=== PATIENT | male | born 1955 | race Caucasian/White ===

== ENCOUNTER 2020-10-06 18:31 | Inpatient (IN) | payer OTHER ==
[~2020-10-06] VITALS: Ht 170.2 cm; Wt 59.0 kg
[~2020-10-06 18:31] MED LIST changes: -ACET325 PO; -ALBU90OI INH; -AMLO5 PO; -ATOR20 PO; -Aspir 8181 MG; -BISA10S PR; -CHLO25A PO; -CLOP75; -DOCU100 PT; -IPRAT-ALBUT 0.5-3 ML INH; -Lopressor 25 mg25 MG PT; -MIRALAX17 GM PT; -Nicoderm Cq1 EAC1 TOP; -OMEP20ER PT; -SENNA LAXATIVE8.6 MG PT
[2020-10-07 05:13] LABS: BASOPHILS ABSOLUTE AUTO 0.05 K/mm3 (0.00-0.23); BASOPHILS PERCENT AUTO 1 % (0-2); EOSINOPHILS PERCENT AUTO 1 % (0-6); Hematocrit 41.9 % (37.0-53.0); Hemoglobin 14.6 g/dL (13.5-17.5); IMMATURE GRAN ABSOLUTE AUTO 0.03 K/mm3 (0.00-0.10); IMMATURE GRAN PERCENT AUTO 0 % (0-1); LYMPHOCYTES ABSOLUTE AUTO 1.13 K/mm3 (0.84-5.20); LYMPHOCYTES PERCENT AUTO 13 % (21-46); MONOCYTES ABSOLUTE AUTO 0.93 K/mm3 (0.16-1.47); MONOCYTES PERCENT AUTO 11 % (4-13); Mean Corpuscular HGB 32.3 pg (26.0-34.0); Mean Corpuscular HGB Conc 34.8 g/dL (31.5-36.5); Mean Corpuscular Volume 93 fL (80-100); Mean Platelet Volume 9.6 fL (9.1-12.4); NEUTROPHILS ABSOLUTE AUTO 6.44 K/mm3 (1.96-9.15); NEUTROPHILS PERCENT AUTO 74 % (41-73); Platelet Count 489 K/mm3 (150-400); RDW Standard Deviation 41.3 fL (35.1-46.3); Red Blood Cell Count 4.52 M/mm3 (4.30-5.90); White Blood Cell Count 8.68 K/mm3 (4.00-11.30)
[2020-10-07 05:33] LABS: Alanine Aminotransfer (ALT/SGP 17 U/L (12-78); Albumin, Blood 2.9 g/dL (3.4-5.0); Albumin/Globulin Ratio 0.6 (0.8-1.8); Alk Phos 91 U/L (50-136); Anion Gap 6 mmol/L (6-16); Aspartate Aminotrans (AST/SGOT 23 U/L (12-37); Bilirubin, Total 0.5 mg/dL (0.1-1.0); Blood Urea Nitrogen 11 mg/dL (8-24); Bun/Creatinine Ratio 20.6 (12.0-20.0); CO2, Blood 27 mmol/L (21-32); Calcium, Blood 8.3 mg/dL (8.5-10.1); Chloride, Blood 100 mmol/L (98-108); Creatinine, Blood 0.54 mg/dL (0.60-1.20); Globulin, Blood 4.6 g/dL (2.2-4.0); Glomerular Filtration Rate >60 (60-); Glucose, Blood 101 mg/dL (70-99); Sodium, Blood 133 mmol/L (136-145); Total Protein, Blood 7.5 g/dL (6.4-8.2)
[2020-10-07 18:38] LABS: Influenza A, PCR Negative (NEGATIVE); Influenza B, PCR Negative (NEGATIVE); Resp Syncytial Virus, PCR Negative (NEGATIVE); SARS-Cov-2 (COVID-19) PCR, MMC Negative (NEGATIVE)
[2020-10-12] MEDS ORDERED: Nicoderm Cq1 EAC1 TOP (11:38)
[2020-10-12] MEDS ORDERED: ALBU90OI INH (11:39)
== END 2020-10-12 12:52 | disposition home or self-care (01) | DRG 180 ==
LOC: ER 18:31 → MEDS 18:32
PROVIDERS: Internal Medicine Pulmonary Disease; ADMIT Internal Medicine
PROC: 0BD38ZX Extraction of Right Main Bronchus, Via Natural or Artificial Opening Endoscopic, Diagnostic (ICD-10-PCS; principal; 2020-10-08 07:30)
DX: C34.11 Malignant neoplasm of upper lobe, right bronchus or lung (principal); E43 Unspecified severe protein-calorie malnutrition; J96.01 Acute respiratory failure with hypoxia; E22.2 Syndrome of inappropriate secretion of antidiuretic hormone; J91.0 Malignant pleural effusion; E86.0 Dehydration; F10.10 Alcohol abuse, uncomplicated; F17.210 Nicotine dependence, cigarettes, uncomplicated; I10 Essential (primary) hypertension; I16.0 Hypertensive urgency; Z51.5 Encounter for palliative care; Z20.822 Contact with and (suspected) exposure to COVID-19; D47.3 Essential (hemorrhagic) thrombocythemia; Z68.21 Body mass index [BMI] 21.0-21.9, adult
CPT/HCPCS: 0241U; 36415; 70030; 70553; 71260; 80053; 85025; 87070; 87205; 88108; 88305; 88341; 88342; 93005; 93010; 96360-59; 96361; 99285-25; A9270; A9579; G0378; J0171; J1650; J2250; J2405; J2704; J3010; J7030; J7040; J7120; Q9967

== ENCOUNTER → 2020-10-06 | Outpatient (CLI) | payer OTHER ==
[~2020-10-06] MED LIST: ACET325 PO; ALBU90OI INH; AMLO5 PO; ATOR20 PO; Aspir 8181 MG; BISA10S PR; CHLO25A PO; CLOP75; DOCU100 PT; IPRAT-ALBUT 0.5-3 ML INH; Lopressor 25 mg25 MG PT; MIRALAX17 GM PT; Nicoderm Cq1 EAC1 TOP; OMEP20ER PT; OXYACE5T PO; RXOXYACE PO; SENNA LAXATIVE8.6 MG PT
[2020-10-06 18:00] LABS: BASOPHILS ABSOLUTE AUTO 0.05 K/mm3 (0.00-0.23); BASOPHILS PERCENT AUTO 0 % (0-2); EOSINOPHILS ABSOLUTE AUTO 0.08 K/mm3 (0.00-0.68); EOSINOPHILS PERCENT AUTO 1 % (0-6); Hematocrit 45.1 % (37.0-53.0); IMMATURE GRAN ABSOLUTE AUTO 0.04 K/mm3 (0.00-0.10); IMMATURE GRAN PERCENT AUTO 0 % (0-1); LYMPHOCYTES ABSOLUTE AUTO 1.02 K/mm3 (0.84-5.20); LYMPHOCYTES PERCENT AUTO 9 % (21-46); MONOCYTES ABSOLUTE AUTO 0.73 K/mm3 (0.16-1.47); MONOCYTES PERCENT AUTO 7 % (4-13); Mean Corpuscular HGB 32.1 pg (26.0-34.0); Mean Corpuscular HGB Conc 35.5 g/dL (31.5-36.5); Mean Corpuscular Volume 91 fL (80-100); Mean Platelet Volume 9.5 fL (9.1-12.4); NEUTROPHILS ABSOLUTE AUTO 9.22 K/mm3 (1.96-9.15); NEUTROPHILS PERCENT AUTO 83 % (41-73); Platelet Count 573 K/mm3 (150-400); RDW Standard Deviation 39.5 fL (35.1-46.3); Red Blood Cell Count 4.98 M/mm3 (4.30-5.90); White Blood Cell Count 11.14 K/mm3 (4.00-11.30)
[2020-10-06 18:18] LABS: Alanine Aminotransfer (ALT/SGP 18 U/L (12-78); Albumin, Blood 3.5 g/dL (3.4-5.0); Albumin/Globulin Ratio 0.6 (0.8-1.8); Alk Phos 100 U/L (40-126); Anion Gap 9 mmol/L (6-16); Aspartate Aminotrans (AST/SGOT 35 U/L (12-37); Bilirubin, Total 0.5 mg/dL (0.1-1.0); Blood Urea Nitrogen 6 mg/dL (8-24); Bun/Creatinine Ratio 8.2 (12.0-20.0); CO2, Blood 25 mmol/L (21-32); Chloride, Blood 90 mmol/L (98-108); Creatinine, Blood 0.73 mg/dL (0.60-1.20); Globulin, Blood 5.5 g/dL (2.2-4.0); Glomerular Filtration Rate >60 (60-); Glucose, Blood 92 mg/dL (70-99); Sodium, Blood 124 mmol/L (136-145); Thyroid Stimulating Hormone 1.236 uIU/mL (0.360-4.800); Troponin I 0.038 ng/mL (0.000-0.040)
== END ==
LOC: LAB SHORT 17:52 → LAB 17:52
PROVIDERS: Physician Assistant
DX: R06.00 Dyspnea, unspecified (principal); R53.83 Other fatigue; R07.9 Chest pain, unspecified
CPT/HCPCS: 80053; 83690; 83880; 84443; 84484; 85025; 85379

== ENCOUNTER 2020-12-02 14:24 | Inpatient (IN) | payer OTHER ==
[~2020-12-02] VITALS: Ht 170.2 cm; Wt 60.5 kg
[~2020-12-02 14:24] MED LIST changes: +ALBU90OI INH; +Nicoderm Cq1 EAC1 TOP
[2020-12-02 15:20] LABS: Hematocrit 31.8 % (37.0-53.0); Hemoglobin 10.6 g/dL (13.5-17.5); Mean Corpuscular HGB 33.2 pg (26.0-34.0); Mean Corpuscular HGB Conc 33.3 g/dL (31.5-36.5); Mean Corpuscular Volume 100 fL (80-100); Mean Platelet Volume 8.8 fL (9.1-12.4); Platelet Count 533 K/mm3 (150-400); RDW Coefficient Variation 17.5 % (11.7-14.2); RDW Standard Deviation 62.9 fL (35.1-46.3); Red Blood Cell Count 3.19 M/mm3 (4.30-5.90); White Blood Cell Count 7.69 K/mm3 (4.00-11.30)
[2020-12-02 15:43] LABS: BASOPHILS PERCENT MAN 0 % (0-2); EOSINOPHILS PERCENT MAN 0 % (0-6); LYMPHOCYTES ABSOLUTE MAN 0.53 K/mm3 (0.84-5.20); LYMPHOCYTES PERCENT MAN 7 % (21-46); MONOCYTES PERCENT MAN 0 % (4-13); NEUTROPHILS ABSOLUTE MAN 7.15 K/mm3 (1.96-9.15); SEG NEUTROPHILS PERCENT MAN 93 % (41-73); TOTAL CELLS COUNTED 100
[2020-12-02 15:53] LABS: Alanine Aminotransfer (ALT/SGP 20 U/L (12-78); Albumin, Blood 3.3 g/dL (3.4-5.0); Albumin/Globulin Ratio 0.8 (0.8-1.8); Alk Phos 101 U/L (50-136); Anion Gap 8 mmol/L (6-16); Aspartate Aminotrans (AST/SGOT 14 U/L (12-37); Bilirubin, Total 0.5 mg/dL (0.1-1.0); Blood Urea Nitrogen 16 mg/dL (8-24); Bun/Creatinine Ratio 29.6 (12.0-20.0); CO2, Blood 29 mmol/L (21-32); Calcium, Blood 8.6 mg/dL (8.5-10.1); Chloride, Blood 99 mmol/L (98-108); Creatinine, Blood 0.54 mg/dL (0.60-1.20); Globulin, Blood 4.4 g/dL (2.2-4.0); Glomerular Filtration Rate >60 (60-); Glucose, Blood 124 mg/dL (70-99); Potassium, Blood 3.3 mmol/L (3.5-5.5); Sodium, Blood 136 mmol/L (136-145); Total Protein, Blood 7.7 g/dL (6.4-8.2); Troponin I <0.015 ng/mL (0.000-0.040)
[2020-12-02 17:53] LABS: Source, Urine Clean Catch
[2020-12-02 17:58] LABS: Appearance, Urine Clear (Clear); Bilirubin, Urine Neg (Neg); Blood, Urine Neg (Neg); Color, Urine Yellow (P-Yellow); Glucose Qualitative, Urine Neg (Neg); Ketones, Urine Neg (Neg); Leukocyte Esterase, Urine Neg (Neg); Nitrite, Urine Neg (Neg); Protein, Urine Neg (Neg); Specific Gravity, Urine 1.015 (1.003-1.022); Urobilinogen, Urine NORM (Normal)
[2020-12-02 20:42] LABS: Source, Urine Catheter
[2020-12-02 20:45] LABS: Bilirubin, Urine Neg (Neg); Blood, Urine Neg (Neg); Glucose Qualitative, Urine Neg (Neg); Ketones, Urine Neg (Neg); Leukocyte Esterase, Urine Neg (Neg); Nitrite, Urine Neg (Neg); Protein, Urine Neg (Neg); Urobilinogen, Urine NORM (Normal)
[2020-12-02 20:46] LABS: Appearance, Urine Clear (Clear); Color, Urine Yellow (P-Yellow)
--- NOTE | 2020-12-02 20:53 | NUR ---
PCU ADMIT PT BROUGHT TO PCU-15 BY YUN FROM ER @ APPROX 1950. PT SLID OVER FROM [facility] TO PCU BED BY 4 STAFF D/T PT REPORT OF WEAKNESS & INABILITY TO STAND. PT REPORTS NORMALLY AMBULATING W/OUT ASSISTANCE @ BASELINE. PT A&O X4 W/ SOME DIFFICULTY IN PROVIDING HX. PT QAWALANGIN. BP ELEVATED, OTHERWISE VSS. MONITOR SHOWS NSR, HR 80's. SPO2 > 92% ON RA. PT REPORTS 8/10 LEFT & RIGHT UPPER CHEST PAIN THAT PT REPORTS ONGOING X 1 WK. PT FURTHER REPORTS R ARM "NUMB SINCE DAYLIGHT TODAY." PT W/ DIFFICULTY CONTROLLY R ARM MOVEMENT, STATING "I'M STRUGGLING W/ MY REFLEXES." PT DIFFICULTY GETTING R HAND TO THIS RN's HAND FOR HAND PROJECT MANAGEMENT INTERN ASSESSMENT. BILAT HAND ROBOTIC MACHINE TENDER PRODUCTION EQUAL. PT DIFFICULTY SWALLOWING PO MEDICATIONS, COUGHING & SPITTING UP WATER. PT THEN REPORTING DIFFICULTY SWALLOWING "PAST FEW DAYS." PT NOW NPO PER CLINICAL JUDGEMENT UNTIL [facility].
[2020-12-03 03:59] LABS: BASOPHILS ABSOLUTE AUTO 0.02 K/mm3 (0.00-0.23); BASOPHILS PERCENT AUTO 0 % (0-2); EOSINOPHILS ABSOLUTE AUTO 0.02 K/mm3 (0.00-0.68); EOSINOPHILS PERCENT AUTO 0 % (0-6); Hematocrit 28.1 % (37.0-53.0); Hemoglobin 9.7 g/dL (13.5-17.5); Mean Corpuscular HGB 33.2 pg (26.0-34.0); Mean Corpuscular HGB Conc 34.5 g/dL (31.5-36.5); Mean Corpuscular Volume 96 fL (80-100); Mean Platelet Volume 8.7 fL (9.1-12.4); Platelet Count 402 K/mm3 (150-400); RDW Coefficient Variation 17.2 % (11.7-14.2); RDW Standard Deviation 60.1 fL (35.1-46.3); Red Blood Cell Count 2.92 M/mm3 (4.30-5.90); White Blood Cell Count 7.91 K/mm3 (4.00-11.30)
[2020-12-03 04:02] LABS: IMMATURE GRAN ABSOLUTE AUTO 0.04 K/mm3 (0.00-0.10); IMMATURE GRAN PERCENT AUTO 1 % (0-1); LYMPHOCYTES ABSOLUTE AUTO 0.38 K/mm3 (0.84-5.20); LYMPHOCYTES PERCENT AUTO 5 % (21-46); MONOCYTES ABSOLUTE AUTO 0.12 K/mm3 (0.16-1.47); MONOCYTES PERCENT AUTO 2 % (4-13); NEUTROPHILS ABSOLUTE AUTO 7.33 K/mm3 (1.96-9.15); NEUTROPHILS PERCENT AUTO 93 % (41-73)
[2020-12-03 05:20] LABS: Anion Gap 6 mmol/L (6-16); Blood Urea Nitrogen 12 mg/dL (8-24); Bun/Creatinine Ratio 23.2 (12.0-20.0); CHOL/HDL RATIO 2.6; CO2, Blood 28 mmol/L (21-32); Calcium, Blood 8.2 mg/dL (8.5-10.1); Chloride, Blood 102 mmol/L (98-108); Cholesterol 148 mg/dL (50-200); Creatinine, Blood 0.52 mg/dL (0.60-1.20); Ferritin, Serum 905 ng/mL (26-388); Glomerular Filtration Rate >60 (60-); Glucose, Blood 88 mg/dL (70-99); HDL Cholesterol 58 mg/dL (>39); Iron Serum 231 ug/dL (65-175); LDL/HDL RATIO 1.2; Low Density Lipoprotein Chol 72 mg/dL (0-110); Percent Saturation 90.2 % (20.0-50.0); Potassium, Blood 3.6 mmol/L (3.5-5.5); Sodium, Blood 136 mmol/L (136-145); Total Iron Binding Capacity 256 ug/dL (250-450); Triglycerides 90 mg/dL (30-160); Very Low Density Lipoprot Chol 18 mg/dL (6-32)
--- NOTE | 2020-12-03 05:47 | NUR ---
SHIFT SUMMARY PT CONTINUES TO BE A&O X4, PLEASANT & COOPERATIVE. VSS, BP IMPROVED. SPO2 > 92% ON RA. MONITOR SHOWING SB-SR, HR 50's-70's. PT REPORTS CP DECREASED FROM 05/10 TO 11/10 THIS SHIFT. PT ALSO REPORTS "MY R ARM ALSO ISN'T NUMB THIS MORNING. I'M STARTING TO GET MORE OF THE FEELING BACK." NO OTHER CHANGES. NS GTT INFUSING PER ORDERS. PT RESTING. WILL CONTINUE TO MONITOR & PROVIDE CARE UNTIL REPORT OFF TO DAY SHIFT RN.
--- NOTE | 2020-12-03 08:31 | NUR ---
PT LAYING IN BED AWAKE A/OX3, PLEASANT AND COOPERATIVE WITH CARE, FOLLOWS COMMANDS WELL, REPORTS HIS RIGHT SIDE CHEST PAIN IS MUCH BETTER THAN WHEN HE CAME IN, LUNGS ARE COURSE T/O, IS CURRENTLY ON R/A IS SELF SUCTIONING SECRETIONS HE IS HAVING TROUBLE MANAGING THEM, WAS REPORTED THAT HE HAD SOME COUGHING AFTER TAKING PO MEDS LAST NIGHT, WILL KEEP NPO UNTIL SWALL EVAL, HRR, TELE IN PLACE RUNNING SB TO SR PER MONITOR, SEE STRIP, NO EDEMA NOTED, PPP+2, CAP REFILL <3SEC, VS STABLE, AFEBRILE, IV SITE IS CLEAR AND PATENT, BTX4, ABD FLAT SOFT NONTENDER, VOIDS WITHOUT DIFF, SKIN C/W/D, MOVES LEFT SIDE WITHOUT DIFF, RIGHT SIDE HE DOESN'T SEEM TO HAVE FULL CONTROL OF, AND IS WEAK, MIKI, CALL LIGHT IN REACH. WILL BE HAVING AN MRI TODAY.
--- NOTE | 2020-12-03 11:19 | NUR ---
Bedside report received from Iraida Gaines RN. Dr Reyes at the bedside, read MRI report.
--- NOTE | 2020-12-03 11:28 | NUR ---
PT HAD MRI, DR. OCHOA IN TO SEE HIM, PT WORKING WITH HIM, HE TOOK HIS PO MEDS WHOLE WITH APPLESAUCE WITHOUT DIFF, REPORT TO TONYA CONLEY. CALL LIGHT IN REACH.
--- NOTE | 2020-12-03 12:05 | NUR ---
ENCOURaged pt to eat slowly. He states some difficulty with fine motor coordination with left hand to eat. Noted occasional cough while eating. Encouraged pt to slow down and take small bites. Also encouraged pt to sit on side of bed/ or in chair for meals.
--- NOTE | 2020-12-03 16:31 | NUR ---
Vital signs stable, blood pressure normalizing after Norvasc administration. Pt states he still has the hiccups, now for over a day. His mom was here to visit briefly. Pt denies any discomfort.
--- NOTE | 2020-12-03 18:08 | NUR ---
Dr. Herman here to see the pt following reading of his Echocardiogram. Manager Office states highly unlikely that heart was source of embolism. Dr. Wilson, neurologist also here at the same time, consulting on the pt. new order for hypercoag lab work.
--- NOTE | 2020-12-03 19:15 | NUR ---
ASSUMED CARE RECEIVED BEDSIDE REPORT FROM TONYARN; PT A&O X4; VSS; DENIES CHEST PAIN; O2 SATS >93 ON RA; PT C/O HICCUPS; DENIES OTHER NEEDS; CALL LIGHT IN REACH; BED IN LOWEST POSITION.
[2020-12-04 04:11] LABS: Hematocrit 26.2 % (37.0-53.0); Hemoglobin 9.3 g/dL (13.5-17.5); Mean Corpuscular HGB 33.9 pg (26.0-34.0); Mean Corpuscular HGB Conc 35.5 g/dL (31.5-36.5); Mean Corpuscular Volume 96 fL (80-100); Mean Platelet Volume 8.8 fL (9.1-12.4); Platelet Count 403 K/mm3 (150-400); RDW Coefficient Variation 17.2 % (11.7-14.2); RDW Standard Deviation 59.5 fL (35.1-46.3); Red Blood Cell Count 2.74 M/mm3 (4.30-5.90); White Blood Cell Count 5.27 K/mm3 (4.00-11.30)
[2020-12-04 04:27] LABS: Albumin, Blood 2.8 g/dL (3.4-5.0); Anion Gap 6 mmol/L (6-16); Blood Urea Nitrogen 10 mg/dL (8-24); Bun/Creatinine Ratio 20.9 (12.0-20.0); CO2, Blood 28 mmol/L (21-32); Calcium, Blood 8.4 mg/dL (8.5-10.1); Chloride, Blood 100 mmol/L (98-108); Creatinine, Blood 0.48 mg/dL (0.60-1.20); Glomerular Filtration Rate >60 (60-); Glucose, Blood 90 mg/dL (70-99); Phosphorus, Blood 4.1 mg/dL (2.5-4.9); Potassium, Blood 3.4 mmol/L (3.5-5.5); Sodium, Blood 134 mmol/L (136-145)
--- NOTE | 2020-12-04 05:58 | NUR ---
SHIFT SUMMARY PT A&O X 4; PLEASANT & COMPLIANT W/ CARE; VSS; DENIES CHEST PAIN; NSR NOTED ON TELE; O2 SATS >93 ON RA; EXPERIENCING SOME SECRETIONS THAT HE SPITS IN CUP AT BEDSIDE; PO FLUIDS AND SNACKS OFFERED PRN; PT SLEPT SEVERAL HOURS THIS SHIFT; CALL LIGHT IN REACH; BED IN LOWEST POSITION; WILL CONTINUE TO MONITOR CLOSELY UNTIL HAND OFF TO DAY SHIFT RN.
--- NOTE | 2020-12-04 08:00 | NUR ---
pt laying in bed with hiccups, a/ox3, but seems a bit forgetful, lungs are course t/o, resp even and unlabored, no cough noted, but is having trouble managing secretions, and is self suctioning and spitting frequently, speach will re eval this am, pt is on r/a, hrr, tele in place running sr pem monitor, see strip, no edema noted, ppp+1, cap refill <3sec, vs stable, afebrile, iv site is clear and patent, btx4, abd flat soft nontender, voids without diff, skin c//w/d, maew, hola, call light in reach.
[2020-12-04 12:36] LABS: International Normalized Ratio 0.97; Prothrombin Time Results 10.4 Sec (9.7-11.5)
[2020-12-04 13:21] LABS: Influenza A, PCR NEGATIVE (NEGATIVE); Influenza B, PCR NEGATIVE (NEGATIVE); Resp Syncytial Virus, PCR NEGATIVE (NEGATIVE); SARS-Cov-2 (COVID-19) PCR, MMC NEGATIVE (NEGATIVE)
--- NOTE | 2020-12-04 14:35 | NUR ---
assisted pt to bathroom using gait belt and walker, he is unsteady, did have a bm, will be doing a libia around 1500. call light in reach.
--- NOTE | 2020-12-04 16:47 | NUR ---
MIGUELITO WAS DONE. V.S. REMAIN STABLE. TOILERATED WELL. CALL LIGHT IN REACH.
--- NOTE | 2020-12-04 18:39 | NUR ---
PT AWAKE, SITTING UP FOR DINNER. DOING OK, NO ACUTE CHANGES THIS SHIFT. CALL LIGHT IN REACH.
--- NOTE | 2020-12-04 19:15 | NUR ---
ASSUMED CARE RECEIVED BEDSIDE REPORT FROM ROMAN OWENS RN; PT A&O X 3-4; VSS; NSR ON TELE; O2 SATS >96 ON RA; PT ALERT, SITTING UP IN BED; NO DISTRESS NOTED; CALL LIGHT IN REACH; BED IN LOWEST POSITION.
--- NOTE | 2020-12-04 21:30 | NUR ---
UPDATE ASKED PT PERMISSION TO TALK TO HIS SON; SPOKE W/ SON GISELA ON THE PHONE FOR UPDATE
[2020-12-05 04:27] LABS: Hematocrit 25.7 % (37.0-53.0); Hemoglobin 9.1 g/dL (13.5-17.5); Mean Corpuscular HGB Conc 35.4 g/dL (31.5-36.5); Mean Corpuscular Volume 96 fL (80-100); Mean Platelet Volume 8.8 fL (9.1-12.4); Platelet Count 388 K/mm3 (150-400); RDW Standard Deviation 59.3 fL (35.1-46.3); Red Blood Cell Count 2.68 M/mm3 (4.30-5.90); White Blood Cell Count 4.53 K/mm3 (4.00-11.30)
[2020-12-05 04:43] LABS: Albumin, Blood 2.9 g/dL (3.4-5.0); Anion Gap 6 mmol/L (6-16); Blood Urea Nitrogen 11 mg/dL (8-24); Bun/Creatinine Ratio 25.4 (12.0-20.0); CO2, Blood 29 mmol/L (21-32); Calcium, Blood 8.5 mg/dL (8.5-10.1); Chloride, Blood 100 mmol/L (98-108); Creatinine, Blood 0.43 mg/dL (0.60-1.20); Glomerular Filtration Rate >60 (60-); Glucose, Blood 99 mg/dL (70-99); Potassium, Blood 3.3 mmol/L (3.5-5.5); Sodium, Blood 135 mmol/L (136-145)
--- NOTE | 2020-12-05 05:27 | NUR ---
SHIFT SUMMARY PT &O X 4; DENIES CHEST PAIN; VSS; NSR NOTED ON TELE; O2 SATS >93 ON RA;PT CONTINUES TO HAVE SECRETIONS THAT HE PREFERS TO SPIT IN A CUP; STATES SUCTIONING "DOESN'T REALLY WORK"; USES URINAL IN BED; R SIDED WEAKNESS NOTED W/ LACK OF CONTROL OF LIMBS; SEVERAL ITEMS OFFERED TO PT, SUCH PO FLUIDS, SNACKS, WARM BLANKET, PT REFUSES; SLEPT ON AND OFF T/O SHIFT; CALL LIGHT IN REACH; BED IN LOWEST POSITION; WILL CONTINUE TO MONITOR UNTIL HAND OFF TO DAY SHIFT RN.
--- NOTE | 2020-12-05 08:00 | NUR ---
PT LAYING IN BED, WAKES EASILY, A/OX3, PLEASANT AND COOPERATIVE WITH CARE, FOLLOWS COMMANDS WELL, DENIES PAIN, LUNGS ARE COURSE IN UPPER POWELL, A BIT MORE CLEAR IN BASES, RESP EVEN AND UNLABORED, HAS FREQ THROAT CLEARING AND SELF SUCTIONS SECREATIONS, HE HAS TROUBLE SWALLOWING SOME, AND IS BEING FOLLOWED BY AVIVA, IS ON R/A, HRR, TELE IN PLACE RUNNING SR PER MONITOR, SEE STRIP, NO EDEMA NOTED, PPP+2, CAP REFILL <SEC, VS STABLE, AFEBRILE, IV SITE IS CLEAR AND PATENT, BTX4, ABD FLAT SOFT NONTENDER, VOIDS WITHOUT DIFF, SKIN C/W/D, MAEW, MIKI, CALL LIGHT IN REACH.
--- NOTE | 2020-12-05 13:11 | NUR ---
pt resting in bed, denies needs or complaints. call light in reach.
--- NOTE | 2020-12-05 18:51 | NUR ---
pt doing ok, is persistantly bringing up phlem, and self suctioning, also continues with hiccups, was started on thorazine for them, he reports it made them easier,but didn't stop them. no furthe changes this shift. call light in reach.
--- NOTE | 2020-12-05 19:15 | NUR ---
ASSUMED CARE RECEIVED BEDSIDE REPORT FROM ROMAN OWENS RN; PT A&O X 4; VSS; DENIES CHEST PAIN; O2 SATS >93 ON RA; CONTINUES W/ DIFFICULTY MANAGING SECRETIONS, SELF SUCTIONS AND SPITS IN CUP; DENIES NEEDS AT THIS TIME; LAYING IN BED WATCHING TV W/ NO DISTRESS NOTED; PERSONAL BELONGINGS IN REACH; CALL LIGHT IN REACH; BED IN LOWEST POSITION.
[2020-12-06 04:32] LABS: Anion Gap 6 mmol/L (6-16); Blood Urea Nitrogen 12 mg/dL (8-24); Bun/Creatinine Ratio 25.7 (12.0-20.0); CO2, Blood 28 mmol/L (21-32); Calcium, Blood 8.9 mg/dL (8.5-10.1); Chloride, Blood 103 mmol/L (98-108); Creatinine, Blood 0.47 mg/dL (0.60-1.20); Glomerular Filtration Rate >60 (60-); Glucose, Blood 115 mg/dL (70-99); Potassium, Blood 3.6 mmol/L (3.5-5.5); Sodium, Blood 137 mmol/L (136-145)
--- NOTE | 2020-12-06 05:29 | NUR ---
SHIFT SUMMARY PT A&O X 3-4; PT C/O SECRETIONS, MUMBLES CURSE WORDS TO SELF IN FRUSTRATION; SPITS IN CUP AT BEDSIDE; VSS; DENIES CHEST PAIN; O2 SATS >93 ON RA; USES URINAL AT BEDSIDE; DENIES NEEDS; NO ACUTE CHANGES THIS SHIFT; CALL LIGHT IN REACH; BED IN LOWEST POSITION; WILL CONTINUE TO MONITOR CLOSELY UNITL HAND OFF TO DAY SHIFT RN.
--- NOTE | 2020-12-06 18:08 | NUR ---
SHIFT SUMMARY: NO ACUTE CHANGES T/OUT SHIFT. PT CONTINUES A&O, MAINTAINING O2 SATS >92% ON ROOM AIR, SINUS RHYTHM ON MONITOR. PT STATES MILD R SIDE WEAKNESS/TENDERNESS CONTINUES, IS ABLE TO TRANSFER SELF TO BSC OR CHAIR WITH SBA, USES FURNITURE FOR ASSISTANCE. INCREASED SECRETIONS CONTINUE, PT NOT WANTING TO USE SUCTION, STATES IT DOESN'T WORK AND PREFERS TO SPIT OUT THE SALIVA. SPEECH THERAPY TO BEDSIDE TODAY, MECHANICAL SOFT DIET AND NECTAR THICK LIQUIDS CONTINUE. WILL CONTINUE TO MONITOR AND TREAT ACCORDINGLY UNTIL CHANGE OF SHIFT.
--- NOTE | 2020-12-07 05:55 | NUR ---
SHIFT SUMMARY PT MEDICAL W/ TELE STATUS. A&O X4. VSS. SPO2 > 92% ON RA. PT W/ FREQUENT WEAK COUGH PRODUCING THIN CLEAR SPUTUM T/O NIGHT. PT ALSO W/ HICCUPS T/O SHIFT. MONITOR SHOWS SR-ST, HR 80's-110. NO OTHER EVENTS OVER NIGHT.
--- NOTE | 2020-12-07 08:39 | NUR ---
0750 Assisted to stand and transfer to chair before breakfast. pt used walker and gait belt also in use for stability.
--- NOTE | 2020-12-07 13:10 | NUR ---
Telephone report given; anticipating pt transferring to room 343 shortly.
--- NOTE | 2020-12-07 17:00 | NUR ---
SHIFT SUMMARY PATIENT TRANSFERED TO THE MEDICAL FLOOR MID AFTERNOON. PATIENT ARRIVED VIA WHEELCHAIR. PATIENT HAD A DIFFICULT TIME TRANSFERING FROM THE WHEELCHAIR TO THE BED, APPEARING TO HAVE DIFFICULTY WITH COORDINATION. PATIENT ALERT AND ORIENTED THIS SHIFT. PATIENT DENIED NEEDS ONCE IN BED. IV REPLACED DUE TO QUESTIONABLE APPEARANCE AND NEED FOR PATENT IV FOR PPN. PPN STARTED ORDERED. PATIENT WORKED WITH PT THIS AFTERNOON AND SPOKE WITH PALLIATIVE CARE. PATIENT CURRENTLY SITTING UP IN BED WATCHING TELEVISION.
--- NOTE | 2020-12-07 18:11 | NUR ---
Met with pt today, he states he is talkative, but tired. 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 He talks about his son Germán, states they are close. He states he is interested in getting some rehab for the recent stroke, and is planning to go ahead and get a feeding tube "for now". He states he wants to keep fighting to live, unless symptoms become unmanageable. He asked if we can continue the conversation later, states he is enjoying it, but exhausted. Plan to return prn, depending on/if when pt is transferred to SNF as indicated as a possibility by Agatha, Security Control Assessor.
[2020-12-08 06:06] LABS: Hematocrit 25.3 % (37.0-53.0); Hemoglobin 8.6 g/dL (13.5-17.5); Mean Corpuscular Volume 100 fL (80-100); Mean Platelet Volume 9.5 fL (9.1-12.4); Platelet Count 309 K/mm3 (150-400); RDW Coefficient Variation 16.5 % (11.7-14.2); RDW Standard Deviation 61.6 fL (35.1-46.3); Red Blood Cell Count 2.53 M/mm3 (4.30-5.90); White Blood Cell Count 5.89 K/mm3 (4.00-11.30)
[2020-12-08 06:43] LABS: Alanine Aminotransfer (ALT/SGP 19 U/L (12-78); Albumin, Blood 3.1 g/dL (3.4-5.0); Albumin/Globulin Ratio 0.7 (0.8-1.8); Alk Phos 99 U/L (50-136); Anion Gap 5 mmol/L (6-16); Aspartate Aminotrans (AST/SGOT 15 U/L (12-37); Bilirubin, Total 0.4 mg/dL (0.1-1.0); Blood Urea Nitrogen 13 mg/dL (8-24); Bun/Creatinine Ratio 24.6 (12.0-20.0); CO2, Blood 30 mmol/L (21-32); Calcium, Blood 8.9 mg/dL (8.5-10.1); Chloride, Blood 100 mmol/L (98-108); Creatinine, Blood 0.53 mg/dL (0.60-1.20); Globulin, Blood 4.3 g/dL (2.2-4.0); Glomerular Filtration Rate >60 (60-); Glucose, Blood 101 mg/dL (70-99); Magnesium, Blood 1.9 mg/dL (1.6-2.4); Phosphorus, Blood 4.6 mg/dL (2.5-4.9); Potassium, Blood 3.8 mmol/L (3.5-5.5); Sodium, Blood 135 mmol/L (136-145); Total Protein, Blood 7.4 g/dL (6.4-8.2)
--- NOTE | 2020-12-08 06:44 | NUR ---
65 year old MAle with lung cancer diagnosed within last 3 months who was on chemo & radiation had LT sided CVA with deficit of rt facial numbness tingling & rt UE heaviness & tingling. He had barium swallow yesterday & failed so is NPO & PPN started. He has intractable hiccups thorazine 25 mg po crushed in sm bite applesauce given x 2 with mild helpful effect. Calls appropriatly for assist to bathroom. PT has baseline ETOH consumption of 12 beers daily. No S/SX detox. Lives alone, has Son involved in PT's care. Pallative care consult completed.
--- NOTE | 2020-12-08 17:37 | NUR ---
Spiritual care note: Per chart pt is non-quaker. His mom was visiting when I came by this afternoon. Neither were speaking and both did not appear to want solar energy advisor presence. Pt seem very tired/weak. Advised I would remeina available for emotional support.
--- NOTE | 2020-12-08 18:27 | NUR ---
PT IS RESTING IN BED AFTER SPENDING THE MAJORITY OF HIS DAY IN THE CHAIR. PT IS ALERT AND ORIENTED X4 AND NEEDS 1 PERSON ASSIST. IV LINE IS RUNNING TPN AND WNL. PT MAKES NO COMPLAINTS OF PAIN AT THIS TIME. HICCUPS CONTINUE THROUGH THE DAY, NO IV MEDICATIONS AVAIL FOR TX. GI CONSULT TOMMORROW FOR POTENTIAL PEG TUBE PLACEMENT AND PT IS LOOKING FORWARD TO PROGRESSING WITH HIS CARE AND FEEDING ABILLITIES. STAFF WILL CONT. TO MONITOR FOR CHANGES.
--- NOTE | 2020-12-09 04:07 | NUR ---
SHIFT SUMMARY PATIENT HAD NO ACUTE CHANGES OBSERVED. AXOX 4 AND ONE ASSIST TO BSC. NPO. PIV REMAINS INTACT. TPN INFUSING AT 96mL/HR. HICCUPS CONTINUE THIS SHIFT. DENIES PAIN, SOB, AND N/V. VSS/AFEBRILE. HOGSHEAD WEIGHER REPORTS NSR 89. CALL LIGHT IN REACH. BED IN LOWEST POSITION. WILL CONTINUE TO MONITOR UNTIL DAY SHIFT NURSE ASSUMES CARE.
[2020-12-09 06:20] LABS: Phosphorus, Blood 4.8 mg/dL (2.5-4.9)
--- NOTE | 2020-12-09 10:17 | NUR ---
PER MD, OK TO GIVE THORAZINE WITH SPEECH THERAPY PRESENT. PT TOLERATED THORAZINE WITH ONE SMALL BITE OF APPLE SAUCE. PER SPEECH THERAPY, OK TO GIVE THORAZINE WITHOUT SPEECH THERAPIST PRESENT DONE HERE, FROM NOW ON.
--- NOTE | 2020-12-09 18:36 | NUR ---
PT RESTING IN HIS ROOM AND MAKES NO COMPLAINTS AT THIS TIME. PT MEDICATIONS WERE HELD DUE TO NPO AND MS ASA WAS ADMINISTERED THIS SHIFT. SPECIAL PERMISSION FROM MD AND SPEECH TO ADMIN PO THORAZINE, CRUSHED, IN SAUCE, ONE BITE WORTH, OK AND PT TOLERATED WELL. PT REMAINS ALERT AND ORIENTED X4 AND 1 ASSIST WITH WALKER AND GAIT BELT. PT WILL GO IN FOR PEG PROCEDURE ON SUNDAY AND WILL REMAIN NPO UNTIL THEN. BED IN LOW POSITION, CALL LIGHT WITHIN REACH. IV NUTRITION SUNDAY. STAFF WILL CONT. TO MONITOR.
--- NOTE | 2020-12-10 04:29 | NUR ---
COUNCIL ON AGING DIRECTOR SUMMARY PT A/O X4. DENIES PAIN, NAUSEA, SOB. FREQUENT HICCUPS CONTINUE, MEDICATED WITH THORAZINE PER EMAR. THIS WAS CRUSHED AND TAKEN WITH APPLESAUCE. PT IS NPO STATUS, GIVE ONLY ESSENTIAL MEDS PER ORDER. ROOM AIR, CALLS APPROPRIATELY. AMBULATES TO BATHROOM WITH ONE ASSIST AND FWW. TELE SR IN THE 90'S. CALL LIGHT WITHIN REACH, BED ALARM ON. [facility].
--- NOTE | 2020-12-10 17:56 | NUR ---
Met with pt for visit today. Brief visit, as pt is not very talkative and is tired today. He states he is having PEG tube placed on Wednesday 12/13. No further dialogue today. I will remain available as needed for support.
--- NOTE | 2020-12-10 19:19 | NUR ---
SHIFT SUMMARY ABHIJIT DENIED PAIN THIS SHIFT. UP TO CHAIR WITH AO1 AND GAIT BELT AND WALKER, CALLED APPROPRIATELY. USED URINAL APPROPRIATELY FOR OUTPUT. R SIDE WEAK AND HAS SOME NUMBNESS. PO THORAZINE GIVEN CRUSHED IN APPLESAUCE FOLLOWING ASPIRATION PRECAUTIONS, PT DID WELL, AND HE STATES THIS HELPED WITH HIS INTRACTABLE HICCUPS. TPN RUNNING. CALL LIGHT IN REACH, REPORT GIVEN TO NIGHT NURSE
--- NOTE | 2020-12-11 05:16 | NUR ---
SHIFT SUMMARY: VSS. AFEB. AAOX3. COMMUNICATES NEEDS. TPN INFUSING CONTINUOUSLY. CONT W/ RUE NUMNESS/TINGLING AND WEAKNESS. R FACIAL DROOP AND R FACE/HEAD NUMBNESS AND TINGLING. FREQUENT HICCUPING AND COUGHING- THORAZINE GIVEN PER ORDER W/ MINIMAL EFFECT. COUGH PRODUCING MOD AMTS OF CLEAR TO WHITE SPUTUM. COARSE CRACKLES AUSCULTATED IN B LUNG BASES. MAINTAINING 02 SATS WNL. DENIES SOB OR CHEST PAIN. AMB W/ 1 ASSIST, FWW, GAITBELT. CONTINENT. NO ACUTE OVERNIGHT EVENTS. WCTM.
[2020-12-11 05:48] LABS: Hematocrit 20.9 % (37.0-53.0); Hemoglobin 7.4 g/dL (13.5-17.5); Mean Corpuscular HGB 34.9 pg (26.0-34.0); Mean Corpuscular HGB Conc 35.4 g/dL (31.5-36.5); Mean Corpuscular Volume 99 fL (80-100); Platelet Count 124 K/mm3 (150-400); RDW Coefficient Variation 15.5 % (11.7-14.2); RDW Standard Deviation 55.9 fL (35.1-46.3); Red Blood Cell Count 2.12 M/mm3 (4.30-5.90); White Blood Cell Count 2.65 K/mm3 (4.00-11.30)
[2020-12-11 06:15] LABS: Anion Gap 5 mmol/L (6-16); Blood Urea Nitrogen 15 mg/dL (8-24); Bun/Creatinine Ratio 34.2 (12.0-20.0); CO2, Blood 31 mmol/L (21-32); Chloride, Blood 100 mmol/L (98-108); Creatinine, Blood 0.44 mg/dL (0.60-1.20); Glomerular Filtration Rate >60 (60-); Glucose, Blood 98 mg/dL (70-99); Potassium, Blood 3.8 mmol/L (3.5-5.5); Sodium, Blood 136 mmol/L (136-145)
--- NOTE | 2020-12-11 19:23 | NUR ---
SHIFT SUMMARY ABHIJIT TOOK A 3 HOUR NAP THIS SHIFT, HE DIDN'T GET ANY SLEEP LAST NIGHT. HICCUPS ARE BETTER ALSO. GOT ONE DOSE OF PO THORAZINE WITH SOME S/S ASPIRATION AFTERWARDS DESPITE FOLLOWING ASP PRECAUTIONS, MAY HAVE INITATED SWALLOW DURING A HICCUP. STILL COUGHING UP WHITE PHLEGM. PT WORKED WITH PT. IRAM RUNNING. AO1 TO CHAIR. USING URINAL APPROPRIATELY. STRICT NPO OTHER THAN PO THORAZINE. DENIED PAIN. CALL LIGHT IN REACH, REPORT GIVEN TO NIGHT NURSE
--- NOTE | 2020-12-12 04:22 | NUR ---
SHIFT SUMMARY: VSS. AFEB. AAOX4. 02 98% ON RA. RESPS EVEN, NON-LABORED. COARSE LS AUSCULTATED. DENIES SOB. CONT W/ FREQUENT WEAK COUGH PRODUCING MOD AMT OF WHITE SPUTUM. INCREASED DOSE OF THORAZINE ADMINISTERED W/ GOOD RESULTS. PT HAS MUCH LESS HICCUPING TONIGHT. APPEARS TO HAVE BEEN SLEEPING MOST OF THE NIGHT. CONT W/ LUE WEAKNESS AND N/T. L FACIAL DROOP/WEAKNESS/NUMBNESS AND TINGLING. 1 ASSIST W/ T/F. DENIES PAIN. PPN CONTINUOUSLY PER ORDERS. NO ACUTE OVERNIGHT EVENTS. WCTM.
--- NOTE | 2020-12-12 19:56 | NUR ---
NO MAJOR CHANGES NOTED. CLIENT AA&OX4. PLEASANT AND COOPERATIVE. DENIES PAIN. PEG TUBE PLACEMENT SCHEDULED FOR SUNDAY. CLIENT APPEARS TO BE IN GOOD SPIRITS. CLIENT WITH BOUTS OF HICCUPS THROUGHOUT THE DAY. PPN RUNNING AT 96MLS/HR. CLIENT TOLERATING WELL. NO QUESTIONS OR CONCERNS NOTED
[2020-12-13 05:21] LABS: Hematocrit 20.2 % (37.0-53.0); Hemoglobin 7.3 g/dL (13.5-17.5); Mean Corpuscular HGB 35.3 pg (26.0-34.0); Mean Corpuscular HGB Conc 36.1 g/dL (31.5-36.5); Mean Corpuscular Volume 98 fL (80-100); Mean Platelet Volume 9.8 fL (9.1-12.4); Platelet Count 52 K/mm3 (150-400); RDW Coefficient Variation 15.4 % (11.7-14.2); RDW Standard Deviation 55.1 fL (35.1-46.3); Red Blood Cell Count 2.07 M/mm3 (4.30-5.90); White Blood Cell Count 2.44 K/mm3 (4.00-11.30)
--- NOTE | 2020-12-13 05:22 | NUR ---
SHIFT SUMMARY: VSS. AFEB. AAOX4. COMMUNICATES NEEDS APPROPRIATELY. REPORTS MILD PAIN IN RIGHT NECK AND SHOULDER, STATES THIS HAS BEEN ONGOING BUT IS TOLERABLE. PERRL. CONTINUES W/ RUE N/T AND WEAKNESS. R FACIAL DROOP/NUMBNESS/TINGLING. THORAZINE GIVEN X1 EFFECTIVELY. PRODUCING LARGE AMTS OF WHITE FOAMY SPUTUM WITH COUGHS. LSCTA TONIGHT. DENIES SOB. ORAL CARE GIVEN. PPN CONTINUOUSLY PER ORDERS. COVID TEST COMPLETED IN PREPARATION FOR GT PLACEMENT TODAY. PT REMAINS NPO W/EXCEPTION OF PO THORAZINE. T/F W/ 1 ASSIST. NO ACUTE OVERNIGHT EVENTS.
[2020-12-13 05:31] LABS: International Normalized Ratio 1.02; Prothrombin Time Results 10.9 Sec (9.7-11.5)
[2020-12-13 05:47] LABS: Anion Gap 7 mmol/L (6-16); Blood Urea Nitrogen 15 mg/dL (8-24); Bun/Creatinine Ratio 33.3 (12.0-20.0); CO2, Blood 28 mmol/L (21-32); Calcium, Blood 8.9 mg/dL (8.5-10.1); Chloride, Blood 100 mmol/L (98-108); Creatinine, Blood 0.45 mg/dL (0.60-1.20); Glomerular Filtration Rate >60 (60-); Glucose, Blood 100 mg/dL (70-99); Potassium, Blood 3.8 mmol/L (3.5-5.5); Sodium, Blood 135 mmol/L (136-145)
[2020-12-13 06:06] LABS: Influenza A, PCR NEGATIVE (NEGATIVE); Influenza B, PCR NEGATIVE (NEGATIVE); Resp Syncytial Virus, PCR NEGATIVE (NEGATIVE); SARS-Cov-2 (COVID-19) PCR, MMC NEGATIVE (NEGATIVE)
--- NOTE | 2020-12-13 11:37 | NUR ---
ASSUMED PT CARE @0710. PT AA&OX4. PLEASANT AND COPERATIVE. PAIN AT A TOLERABLE LEVEL. MEDICATED FOT HICCUPS WITH GOOD RESULTS. CLIENT LEFT FLOOR AT 1140FPT PEG PLACEMENT.
--- NOTE | 2020-12-13 12:20 | NUR ---
12/13/20 1220 Tejal Mari History, Chart, Medications and Allergies reviewed before start of procedure.See Anesthesia record CARE BY .
--- NOTE | 2020-12-13 19:33 | NUR ---
PEG placement unremarkable, pt returned with abdominal binder. VSS. Medicated x1 for abdominal pain, Pt then rested confortably rest of shift. PPN restarted per MD instuction. Plan to start PEG feeding tomorrow.
--- NOTE | 2020-12-13 22:44 | NUR ---
TRIMMER SORTER Diana Hobbs called for pain med post peg tube placement due to only iv pain med has no time parameters. Old fentanyl order dc & new order with 50 mcg fentanyl q 2 hrs for sever pain obtained. PT says post peg tube placement pain is 7 with movement or deep inspiration.
--- NOTE | 2020-12-14 02:19 | NUR ---
PT with advanced lung cancer with impaired swallow continues NPO & had peg tube placed yesterday after noon. CO abd pain at insertion site when he coughs. Medicated x 2 with fentanyl 50 mcg with helpful effect. As of this time PT has not been having hiccups. Voids with urinal. Working with PT OT ST. Not using peg tube yet. Abd binder in place & peg tube secured.
--- NOTE | 2020-12-14 11:54 | NUR ---
TUBE FEEDING STARTED AT 11:55 AM ON 12/14/2020
--- NOTE | 2020-12-14 18:35 | NUR ---
PATIENT IS ALERT AND ORIENTED AND COOPERATIVE WITH CARE. PATIENT WORKED WITH PT TODAY AND TRANSFERRED TO THE RECLINER WHERE HE SAT FOR A FEW HOURS. THE PATIENT VOIDED ON THE BSC. NO BM TODAY. BOWEL CARE PROTOCOL INITIATED. PATIENT STATED TUBE FEEDING TODAY, WHICH HE IS TOLERATING WELL. TREATED FOR PAIN ONCE THIS SHIFT. C/O HICCUPS. WILL CONTINUE TO MONITOR
[2020-12-15 05:16] LABS: Hemoglobin 7.2 g/dL (13.5-17.5); Mean Corpuscular HGB 35.5 pg (26.0-34.0); Mean Corpuscular Volume 99 fL (80-100); Mean Platelet Volume 10.5 fL (9.1-12.4); Platelet Count 53 K/mm3 (150-400); RDW Coefficient Variation 15.8 % (11.7-14.2); RDW Standard Deviation 54.4 fL (35.1-46.3); Red Blood Cell Count 2.03 M/mm3 (4.30-5.90); White Blood Cell Count 1.69 K/mm3 (4.00-11.30)
[2020-12-15 05:31] LABS: Anion Gap 5 mmol/L (6-16); Blood Urea Nitrogen 16 mg/dL (8-24); Bun/Creatinine Ratio 35.4 (12.0-20.0); CO2, Blood 29 mmol/L (21-32); Calcium, Blood 8.6 mg/dL (8.5-10.1); Chloride, Blood 100 mmol/L (98-108); Creatinine, Blood 0.45 mg/dL (0.60-1.20); Glomerular Filtration Rate >60 (60-); Glucose, Blood 113 mg/dL (70-99); Phosphorus, Blood 4.1 mg/dL (2.5-4.9); Sodium, Blood 134 mmol/L (136-145)
[2020-12-15 05:53] LABS: BAND PERCENT MAN 11 % (0-8); BASOPHILS ABSOLUTE MAN 0.03 K/mm3 (0.00-0.23); BASOPHILS PERCENT MAN 2 % (0-2); EOSINOPHILS ABSOLUTE MAN 0.05 K/mm3 (0.00-0.68); EOSINOPHILS PERCENT MAN 3 % (0-6); LYMPHOCYTES ABSOLUTE MAN 0.23 K/mm3 (0.84-5.20); LYMPHOCYTES PERCENT MAN 14 % (21-46); MONOCYTES ABSOLUTE MAN 0.35 K/mm3 (0.16-1.47); MONOCYTES PERCENT MAN 21 % (4-13); NEUTROPHILS ABSOLUTE MAN 1.01 K/mm3 (1.96-9.15); SEG NEUTROPHILS PERCENT MAN 49 % (41-73); TOTAL CELLS COUNTED 100
--- NOTE | 2020-12-15 12:37 | NUR ---
Spiritual care visit conducted. Patient tells me about his lung cancer and then his stroke. We talk about how patient is processing mentally/emotionally what is happening to him physically. Patient tells me that he is struggling and is worried about many things(finances, residential, how successful his chmemo and radiation treatments have been, how he will do at rehabilitation and what does all this mean for his life and value). Patient talks about his belief in God and about the need he feels for a miracle. I normalize patient's experience, reinforce helpful attitudes and provide therapeutic listening and prayer for a miracle. Patient responds well and shows signs of increased hope for his future. I will continue to remain available to patient and family.
--- NOTE | 2020-12-15 18:11 | NUR ---
PATIENT IS ALERT AND ORIENTED AND COOPERATIVE WITH CARE. TOLERATING THE TUBE FEEDINGS WELL TODAY. BOLUS FEEDS STARTED TODAY. PATIENT HAD A LARGE BM THIS MORNING. PATIENT SAT UP IN THE CHAIR FOR A WHILE THIS SHIFT. NO COMPLAINTS OF PAIN THIS SHIFT. WILL CONTINUE TO MONITOR
--- NOTE | 2020-12-15 21:32 | NUR ---
late entry for 12/15/20 0700. PT has new peg tube & tolerating tube feed taper without problems. He denies acute pain. Continues weak after CVA & NPO due to failed swalow eval. Bowels moving.
--- NOTE | 2020-12-15 21:34 | NUR ---
PT tolerating tube feed bolus with 30 ml residual after 4 hours. He is medicated for pain with 50 mcg fentanyl for chest pain with cough. PT has lung cancer & recieved chemo & radiation to treat then had CVA. He has been up in chair working with PT/ OT/ ST. On room air. Bowel care held due to 3 loose stools already today.
--- NOTE | 2020-12-16 03:44 | NUR ---
PT with lung cancer recent dx chemo & radiation & CVA with rt sided residual continues to tolerate peg tube feeding. Changed from continous to bolus & tolerated well. PT has low WBC & started on tx with 2 SQ injections, 1 remaining. Medicated several times with fentanyl 50 mcg with helpful effect. Flutter added to promote clearing of secretions & less painful cough. DC planning for SNF continues.
[2020-12-16 05:00] LABS: Hematocrit 19.8 % (37.0-53.0); Mean Corpuscular HGB 35.9 pg (26.0-34.0); Mean Corpuscular HGB Conc 35.4 g/dL (31.5-36.5); Mean Corpuscular Volume 102 fL (80-100); Mean Platelet Volume 10.3 fL (9.1-12.4); Platelet Count 60 K/mm3 (150-400); RDW Coefficient Variation 16.6 % (11.7-14.2); RDW Standard Deviation 56.8 fL (35.1-46.3); Red Blood Cell Count 1.95 M/mm3 (4.30-5.90); White Blood Cell Count 2.82 K/mm3 (4.00-11.30)
[2020-12-16 05:24] LABS: BAND PERCENT MAN 21 % (0-8); BASOPHILS PERCENT MAN 0 % (0-2); EOSINOPHILS ABSOLUTE MAN 0.11 K/mm3 (0.00-0.68); EOSINOPHILS PERCENT MAN 4 % (0-6); LYMPHOCYTES ABSOLUTE MAN 0.25 K/mm3 (0.84-5.20); LYMPHOCYTES PERCENT MAN 9 % (21-46); MONOCYTES ABSOLUTE MAN 0.62 K/mm3 (0.16-1.47); MONOCYTES PERCENT MAN 22 % (4-13); NEUTROPHILS ABSOLUTE MAN 1.83 K/mm3 (1.96-9.15); SEG NEUTROPHILS PERCENT MAN 44 % (41-73); TOTAL CELLS COUNTED 100
[2020-12-16 14:35] LABS: Hematocrit 20.8 % (37.0-53.0); Hemoglobin 7.2 g/dL (13.5-17.5)
[2020-12-16 18:07] LABS: ACT. PRT C RESIST W/FV DEFIC. 2.9 ratio (.); APTT 29.1 sec (.); DRVVT SCREEN SECONDS 42.2 sec (.); FACTOR VIII ACTIVITY 103 % (.); HEXAGONAL PHOSPHOLIPID NEUTRAL 0 sec (.); HOMOCYSTEINE 7.1 umol/L (.); PRT C ACTIVITY (CHROMOGENIC) 126 % (.)
--- NOTE | 2020-12-16 18:51 | NUR ---
Shift Summary A/O, pleasant and cooperative with care. 1P c gait and FWW, unsteady gait to and from bathroom. Patient having loose stools, bowel meds held. C/O dizziness when attempting to get OOB. New blisters noted to lower abdomen, suspect from abdominal binder holding peg-tube, WCTM. Also c/o numbness and tingling to all R upper body, face, and arm. Denies any n/t to R leg. Patient tolerating bolus feeds well. Does c/o of tasting some formula after completion of feed. L/S clear, wet productive cough. Worked with PT/OT/ST today. Oral care done with suction swab. N/T developed since patient had the stroke per patient's statement. Otherwise, flat affect. Answers questions and calls for needs appropriately. Bed in lowest position, call light near.
[2020-12-17 05:38] LABS: Hematocrit 18.9 % (37.0-53.0); Hemoglobin 6.7 g/dL (13.5-17.5); Mean Corpuscular HGB 36.2 pg (26.0-34.0); Mean Corpuscular HGB Conc 35.4 g/dL (31.5-36.5); Mean Corpuscular Volume 102 fL (80-100); Mean Platelet Volume 11.3 fL (9.1-12.4); Platelet Count 80 K/mm3 (150-400); RDW Coefficient Variation 17.4 % (11.7-14.2); RDW Standard Deviation 61.8 fL (35.1-46.3); Red Blood Cell Count 1.85 M/mm3 (4.30-5.90)
--- NOTE | 2020-12-17 06:07 | NUR ---
SHIFT SUMMARY- PT. A&O, PLEASANT WITH PEG TUBE IN PLACE. RECEIVING BOLUS TF'S, TOLERATING WELL. C/O HICCUPS THIS AM, MEDICATED PER EMAR WITH GOOD EFFECT. PT. RESTED QUIETLY IN BED T/O THE NIGHT, NO APPARENT DISTRESS NOTED. USING URINAL AT THE BEDSIDE. VSS. CALL LIGHT WITHIN REACH AND SIDE RAILS UPX2. WILL CONT TO MONITOR.
[2020-12-17 06:10] LABS: BAND PERCENT MAN 25 % (0-8); BASOPHILS ABSOLUTE MAN 0.06 K/mm3 (0.00-0.23); BASOPHILS PERCENT MAN 1 % (0-2); EOSINOPHILS PERCENT MAN 0 % (0-6); LYMPHOCYTES ABSOLUTE MAN 0.33 K/mm3 (0.84-5.20); LYMPHOCYTES PERCENT MAN 5 % (21-46); MONOCYTES ABSOLUTE MAN 0.53 K/mm3 (0.16-1.47); MONOCYTES PERCENT MAN 8 % (4-13); NEUTROPHILS ABSOLUTE MAN 5.76 K/mm3 (1.96-9.15); SEG NEUTROPHILS PERCENT MAN 61 % (41-73); TOTAL CELLS COUNTED 100
[2020-12-17 13:02] LABS: Influenza A, PCR NEGATIVE (NEGATIVE); Influenza B, PCR NEGATIVE (NEGATIVE); Resp Syncytial Virus, PCR NEGATIVE (NEGATIVE); SARS-Cov-2 (COVID-19) PCR, MMC NEGATIVE (NEGATIVE)
[2020-12-17] MEDS ORDERED: ACET325 PO (15:14)
[2020-12-17] MEDS ORDERED: AMLO5 PO (15:14)
[2020-12-17] MEDS ORDERED: BISA10S PR (15:15)
[2020-12-17] MEDS ORDERED: ATOR20 PO (15:15)
[2020-12-17] MEDS ORDERED: CHLO25A PO (15:16)
[2020-12-17] MEDS ORDERED: DOCU100 PT (15:17)
[2020-12-17] MEDS ORDERED: IPRAT-ALBUT 0.5-3 ML INH (15:17)
[2020-12-17] MEDS ORDERED: Lopressor 25 mg25 MG PT (15:18)
[2020-12-17] MEDS ORDERED: OMEP20ER PT (15:19)
[2020-12-17] MEDS ORDERED: MIRALAX17 GM PT (15:20)
[2020-12-17] MEDS ORDERED: SENNA LAXATIVE8.6 MG PT (15:20)
--- NOTE | 2020-12-17 16:28 | NUR ---
Discharge Summary A/Ox4, discharged to [facility]. Report given to receiving nurse Claudine. One unit PRBC given this shift, tolerated well. Patient discharged with Zio-patch to right upper chest per orders. Personal belongings including phone network internship sent with patient to facility. Rolando (son) notified of transfer. IV removed, WNL. Tolerated bolus feeding. No hiccups noted. Yellow package given to transportation sales consultant.
== END 2020-12-17 16:25 | DRG 64 ==
LOC: ER 14:24 → PCU 18:10 → MEDS 18:10 → PCU 19:50 → MEDS 12-07 13:20 → ENPENDDIS 12-17 14:52 → MEDS 12-17 16:25
PROVIDERS: Emergency Medicine; Internal Medicine; Internal Medicine Cardiovascular Disease; Physician Assistant; Psychiatry & Neurology Neurology; Student in an Organized Health Care Education/Training Program; ADMIT Internal Medicine
PROC: 30233N1 Transfusion of Nonautologous Red Blood Cells into Peripheral Vein, Percutaneous Approach (ICD-10-PCS; 2020-12-13)
PROC: 0DH63UZ Insertion of Feeding Device into Stomach, Percutaneous Approach (ICD-10-PCS; principal; 2020-12-17)
DX: I63.40 Cerebral infarction due to embolism of unspecified cerebral artery (principal); D61.810 Antineoplastic chemotherapy induced pancytopenia; C34.90 Malignant neoplasm of unspecified part of unspecified bronchus or lung; G81.91 Hemiplegia, unspecified affecting right dominant side; E87.2 Acidosis; D68.59 Other primary thrombophilia; E86.0 Dehydration; E87.6 Hypokalemia; G51.0 Bell's palsy; R20.2 Paresthesia of skin; R06.6 Hiccough; R00.1 Bradycardia, unspecified; R29.810 Facial weakness; D47.3 Essential (hemorrhagic) thrombocythemia; T45.1X5A Adverse effect of antineoplastic and immunosuppressive drugs, initial encounter; I70.0 Atherosclerosis of aorta; I10 Essential (primary) hypertension; Z60.2 Problems related to living alone; K20.90 Esophagitis, unspecified without bleeding; R13.12 Dysphagia, oropharyngeal phase; Z92.3 Personal history of irradiation; Z92.21 Personal history of antineoplastic chemotherapy; Z87.891 Personal history of nicotine dependence; Z79.899 Other long term (current) drug therapy; Z88.5 Allergy status to narcotic agent
CPT/HCPCS: 0241U; 36415; 36430; 70450; 70496; 70498; 70551; 71045; 71046; 74230; 80048; 80053; 80061; 80069; 81003; 81240; 82140; 82607; 82728; 82746; 82947; 83090; 83540; 83550; 83605; 83735; 84100; 84145; 84484; 85014; 85018; 85025; 85027; 85240; 85300; 85303; 85306; 85307; 85610; 85613; 85730; 85732; 86146; 86147; 86850; 86900; 86901; 86923; 87040; 92526; 92610; 92611; 93005; 93010; 93246; 93306; 93312; 93325; 94667; 94760; 96360; 96361; 97110; 97112; 97116; 97161; 97166; 97530; 97535; 99152; 99285-25; A9270; C1769; C9113; J0456; J1447; J1650; J2250; J2543; J2704; J3010; J3480; J7030; J7050; J7120; P9016; Q9967

== ENCOUNTER 2021-03-21 10:21 | Day surgery (SDC) | payer OTHER ==
[~2021-03-21] VITALS: Ht 170.2 cm; Wt 67.6 kg
[~2021-03-21 10:21] MED LIST changes: +ACET325 PO; +AMLO5 PO; +ATOR20 PO; +BISA10S PR; +CHLO25A PO; +DOCU100 PT; +IPRAT-ALBUT 0.5-3 ML INH; +Lopressor 25 mg25 MG PT; +MIRALAX17 GM PT; +OMEP20ER PT; +SENNA LAXATIVE8.6 MG PT
[2021-03-21] MEDS ORDERED: CLOP75 (10:42)
[2021-03-21] MEDS ORDERED: Aspir 8181 MG (10:42)
== END 2021-03-21 11:58 | disposition home or self-care (01) ==
LOC: ORSCSDS 10:21
PROVIDERS: Student in an Organized Health Care Education/Training Program
PROC: 0DB78ZX Excision of Stomach, Pylorus, Via Natural or Artificial Opening Endoscopic, Diagnostic (ICD-10-PCS; principal; 2021-03-21 11:45)
PROC: 0DP64UZ Removal of Feeding Device from Stomach, Percutaneous Endoscopic Approach (ICD-10-PCS; principal; 2021-03-21 11:45)
DX: Z93.1 Gastrostomy status (principal); Z87.891 Personal history of nicotine dependence; I10 Essential (primary) hypertension; C80.1 Malignant (primary) neoplasm, unspecified; Z79.899 Other long term (current) drug therapy; Z79.82 Long term (current) use of aspirin
CPT/HCPCS: 88305; 88312; J2704; J7120